=== PATIENT | female | born 1990 | race Caucasian/White ===

== ENCOUNTER 2016-03-03 18:47 | Emergency (ER) | payer SELFPAY ==
[~2016-03-03] VITALS: Ht 167.6 cm; Wt 77.4 kg
[~2016-03-03 18:47] MED LIST: CLEOCIN300 MG PO; FLEXERIL10 MG PO; MOTRIN600 MG PO; PROVENTIL,2.5 MG/3 M IH; ULTRAM50 MG PO; VENTOLIN HFA18 GM IH
[2016-03-03 19:34] LABS: MCH 31.1 PG (29.0-34.0); MCHC 35.5 G/DL (30.0-36.0); MCV 87.6 FL (83-99); MEAN PLAT.VOLUME 11.4 uM^3 (9.5-12.4); PLATELET COUNT 236 K/uL (156-360); RBC DIS.WIDTH-CV 12.5 % (11.8-14.6); RBC DIS.WIDTH-SD 38.6 % (39-53); RED BLOOD COUNT 4.34 M/uL (3.80-5.20); WHITE BLOOD COUNT 7.2 K/uL (4.1-10.2)
[2016-03-03 19:56] LABS: QUANTITATIVE HCG < 4.0 MIU/ML
[2016-03-03 20:13] LABS: CHLORIDE 107 mEq/L (99-109); SODIUM 139 mEq/L (136-147)
[2016-03-03 20:15] LABS: GLUCOSE 91 mg/dL (70-99)
[2016-03-03 20:15] LABS: ADD MIUA? NO; BILIRUBIN NEGATIVE; BLOOD NEGATIVE; COLOR YELLOW ((YELLOW)); GLUCOSE (STRIP) NEGATIVE; KETONES NEGATIVE; LEUKOCYTES NEGATIVE; NITRITE NEGATIVE; PROTEIN (STRIP) NEGATIVE; UCUL ADDED? NO; UROBILINOGEN 0.2 MG/DL (0.2-1.0)
[2016-03-03 20:17] LABS: ANION GAP 8 MEQ/L (2-14); TOTAL BILIRUBIN 0.9 mg/dL (0.0-1.0)
[2016-03-03 20:19] LABS: ALKALINE PHOSPHATASE 70 IU/L (3-129); GFR ESTIMATE (CALCULATED) > 59 mL/min/
[2016-03-03 20:20] LABS: UREA NITROGEN (BUN) 10 mg/dL (9-23)
[2016-03-03] MEDS ORDERED: FLEXERIL10 MG PO (21:38)
[2016-03-03] MEDS ORDERED: ULTRAM50 MG PO (21:38)
[2016-03-03] MEDS ORDERED: PREDNISONE10 MG PO (21:38)
[2016-03-03 22:05] VITALS: BP 136/79
== END 2016-03-03 22:06 | disposition home or self-care (01) ==
LOC: EME 18:47 → EXP 18:47
DX: M54.5 Low back pain (principal); M62.838 Other muscle spasm; J45.909 Unspecified asthma, uncomplicated; F17.200 Nicotine dependence, unspecified, uncomplicated
CPT/HCPCS: 80053; 81003; 84702; 85027; 99281; 99284; J7512

== ENCOUNTER 2016-03-27 20:53 | Emergency (ER) | payer SELFPAY ==
[~2016-03-27] VITALS: Ht 167.6 cm; Wt 79.7 kg
[~2016-03-27 20:53] MED LIST changes: +PREDNISONE10 MG PO
[2016-03-27 21:30] LABS: HEMATOCRIT 39.3 % (36.0-46.0); MCH 30.9 PG (29.0-34.0); MCHC 34.6 G/DL (30.0-36.0); MCV 89.3 FL (83-99); MEAN PLAT.VOLUME 11.3 uM^3 (9.5-12.4); PLATELET COUNT 205 K/uL (156-360); RBC DIS.WIDTH-CV 12.6 % (11.8-14.6); RBC DIS.WIDTH-SD 40.1 % (39-53); WHITE BLOOD COUNT 9.1 K/uL (4.1-10.2)
[2016-03-27 21:48] LABS: CHLORIDE 106 mEq/L (99-109); POTASSIUM 4.3 mEq/L (3.7-5.4); SODIUM 139 mEq/L (136-147)
[2016-03-27 21:49] LABS: GLUCOSE 82 mg/dL (70-99)
[2016-03-27 21:51] LABS: ANION GAP 8 MEQ/L (2-14)
[2016-03-27 21:53] LABS: GFR ESTIMATE (CALCULATED) > 59 mL/min/
[2016-03-27 21:54] LABS: UREA NITROGEN (BUN) 17 mg/dL (9-23)
[2016-03-27 22:01] LABS: QUANTITATIVE HCG < 4.0 MIU/ML
[2016-03-27 22:02] LABS: TROP-I INTERPRETATION NEGATIVE; TROPONIN-I < 0.01 ng/mL (0.0-0.30)
[2016-03-27] MEDS ORDERED: ATARAX,VISTARIL25 MG PO (23:51)
[2016-03-27 23:58] VITALS: BP 125/57
== END 2016-03-27 23:59 | disposition home or self-care (01) ==
LOC: EME 20:53
DX: R07.9 Chest pain, unspecified (principal); M94.0 Chondrocostal junction syndrome [Tietze]; F17.200 Nicotine dependence, unspecified, uncomplicated; Z88.6 Allergy status to analgesic agent; Z88.0 Allergy status to penicillin
CPT/HCPCS: 71020; 80048; 84484; 84702; 85027; 93005; 99281; 99284; Q0177

== ENCOUNTER 2016-04-20 11:53 | Emergency (ER) | payer OTHER ==
[~2016-04-20] VITALS: Ht 167.6 cm; Wt 80.7 kg
[~2016-04-20 11:53] MED LIST changes: +ATARAX,VISTARIL25 MG PO
[2016-04-20 14:07] LABS: ADD MIUA? YES; BILIRUBIN NEGATIVE; BLOOD NEGATIVE; COLOR YELLOW ((YELLOW)); GLUCOSE (STRIP) NEGATIVE; KETONES NEGATIVE; LEUKOCYTES NEGATIVE; NITRITE NEGATIVE; PROTEIN (STRIP) NEGATIVE; SPECIFIC GRAVITY 1.017 (1.000-1.030); UROBILINOGEN 0.2 MG/DL (0.2-1.0)
[2016-04-20 14:15] LABS: BACTERIA NONE SEEN /HPF; BUDDING YEAST 1+; EPITHELIAL CELLS RARE /HPF; MUCUS NONE SEEN /LPF; RED BLOOD CELLS 0-5 /HPF (0-5); WHITE BLOOD CELLS 0-5 /HPF (0-5)
[2016-04-20 14:43] LABS: CHLORIDE 107 mEq/L (99-109); POTASSIUM 4.4 mEq/L (3.7-5.4); SODIUM 140 mEq/L (136-147)
[2016-04-20 14:45] LABS: GLUCOSE 96 mg/dL (70-99)
[2016-04-20 14:46] LABS: ANION GAP 9 MEQ/L (2-14)
[2016-04-20 14:49] LABS: GFR ESTIMATE (CALCULATED) > 59 mL/min/; UREA NITROGEN (BUN) 9 mg/dL (9-23)
[2016-04-20 15:02] LABS: QUANTITATIVE HCG < 4.0 MIU/ML
[2016-04-20] MEDS ORDERED: MOTRIN800 MG PO (15:17)
[2016-04-20] MEDS ORDERED: ANTIVERT25 MG PO (15:17)
[2016-04-20 15:26] VITALS: BP 136/65
== END 2016-04-20 15:27 | disposition home or self-care (01) ==
LOC: EME 11:53
PROVIDERS: Physician Assistant
DX: S06.0X9A Concussion with loss of consciousness of unspecified duration, initial encounter (principal); W19.XXXA Unspecified fall, initial encounter; W22.8XXA Striking against or struck by other objects, initial encounter; Y99.0 Civilian activity done for income or pay; R42 Dizziness and giddiness; J45.909 Unspecified asthma, uncomplicated; F17.200 Nicotine dependence, unspecified, uncomplicated
CPT/HCPCS: 80048; 81003; 84702; 99281; 99283

== ENCOUNTER 2016-04-26 22:01 | Emergency (ER) | payer OTHER ==
[~2016-04-26] VITALS: Ht 167.6 cm; Wt 91.3 kg
[~2016-04-26 22:01] MED LIST changes: +ANTIVERT25 MG PO; +MOTRIN800 MG PO
[2016-04-26 22:45] LABS: BASOPHIL COUNT 0.1 K/uL (0-0.1); EOSINOPHIL (%) 4.1 % (0-5); EOSINOPHIL COUNT 0.4 K/uL (0-0.3); HEMATOCRIT 38.4 % (36.0-46.0); IMMATURE GRANULOCYTE (%) 0.2 % (0.0-0.7); INSTRUMENT ABS NEUTROPHIL CT 3.6 K/uL; LYMPHOCYTE COUNT 4.6 K/uL (1.0-2.8); MCH 30.3 PG (29.0-34.0); MCHC 33.6 G/DL (30.0-36.0); MCV 90.1 FL (83-99); MEAN PLAT.VOLUME 10.9 uM^3 (9.5-12.4); MONOCYTE (%) 5.8 % (3-12); MONOCYTE COUNT 0.5 K/uL (0-0.8); NEUTROPHIL COUNT 3.6 K/uL (1.8-6.4); PLATELET COUNT 205 K/uL (156-360); RBC DIS.WIDTH-CV 11.7 % (11.8-14.6); RBC DIS.WIDTH-SD 38.3 % (39-53); RED BLOOD COUNT 4.26 M/uL (3.80-5.20); WHITE BLOOD COUNT 9.2 K/uL (4.1-10.2)
[2016-04-26 22:48] LABS: ADD MIUA? YES; BILIRUBIN NEGATIVE; BLOOD NEGATIVE; COLOR YELLOW ((YELLOW)); GLUCOSE (STRIP) NEGATIVE; KETONES NEGATIVE; LEUKOCYTES TRACE; NITRITE NEGATIVE; PROTEIN (STRIP) NEGATIVE; SPECIFIC GRAVITY 1.021 (1.000-1.030); UROBILINOGEN 0.2 MG/DL (0.2-1.0)
[2016-04-26 22:52] LABS: BACTERIA RARE /HPF; EPITHELIAL CELLS RARE /HPF; MUCUS NONE SEEN /LPF; RED BLOOD CELLS 0-5 /HPF (0-5); UCUL ADDED? NO; WHITE BLOOD CELLS 0-5 /HPF (0-5)
[2016-04-26 22:55] LABS: CHLORIDE 105 mEq/L (99-109); SODIUM 139 mEq/L (136-147)
[2016-04-26 22:57] LABS: GLUCOSE 91 mg/dL (70-99)
[2016-04-26 22:58] LABS: ANION GAP 9 MEQ/L (2-14)
[2016-04-26 22:59] LABS: TOTAL BILIRUBIN 0.7 mg/dL (0.0-1.0)
[2016-04-26 23:00] LABS: ALKALINE PHOSPHATASE 65 IU/L (3-129)
[2016-04-26 23:01] LABS: GFR ESTIMATE (CALCULATED) > 59 mL/min/
[2016-04-26 23:02] LABS: UREA NITROGEN (BUN) 16 mg/dL (9-23)
[2016-04-26 23:04] LABS: LIPASE 46 U/L (1.0-51.0)
[2016-04-26 23:13] LABS: QUANTITATIVE HCG < 4.0 MIU/ML
[2016-04-27] MEDS ORDERED: ZOFRAN ODT4 MG PO (00:40)
[2016-04-27] MEDS ORDERED: TRAMADOL HCL50 MG PO (00:40)
[2016-04-27 01:00] VITALS: BP 144/64
== END 2016-04-27 01:12 | disposition home or self-care (01) ==
LOC: EME 22:01
PROVIDERS: Emergency Medicine
DX: N83.202 Unspecified ovarian cyst, left side (principal); R10.30 Lower abdominal pain, unspecified; N64.4 Mastodynia; J45.909 Unspecified asthma, uncomplicated; F17.200 Nicotine dependence, unspecified, uncomplicated
CPT/HCPCS: 74177; 80053; 81003; 83690; 84702; 85025; 99281; 99285; J1885; J2405; J7030

== ENCOUNTER 2016-06-07 12:54 | Emergency (ER) | payer OTHER ==
[~2016-06-07] VITALS: Ht 167.6 cm; Wt 78.8 kg
[~2016-06-07 12:54] MED LIST changes: +TRAMADOL HCL50 MG PO; +ZOFRAN ODT4 MG PO
[2016-06-07 13:56] LABS: ADD MIUA? NO; BILIRUBIN NEGATIVE; BLOOD NEGATIVE; COLOR YELLOW ((YELLOW)); GLUCOSE (STRIP) NEGATIVE; KETONES NEGATIVE; LEUKOCYTES NEGATIVE; NITRITE NEGATIVE; PROTEIN (STRIP) NEGATIVE; SPECIFIC GRAVITY 1.011 (1.000-1.030); UCUL ADDED? NO; UROBILINOGEN 0.2 MG/DL (0.2-1.0)
[2016-06-07 14:13] LABS: HEMATOCRIT 44.8 % (36.0-46.0); MCH 30.1 PG (29.0-34.0); MCHC 34.2 G/DL (30.0-36.0); MCV 88.2 FL (83-99); MEAN PLAT.VOLUME 11.5 uM^3 (9.5-12.4); PLATELET COUNT 250 K/uL (156-360); RBC DIS.WIDTH-CV 11.4 % (11.8-14.6); RBC DIS.WIDTH-SD 36.6 % (39-53); RED BLOOD COUNT 5.08 M/uL (3.80-5.20); WHITE BLOOD COUNT 6.9 K/uL (4.1-10.2)
[2016-06-07 14:21] LABS: CHLORIDE 104 mEq/L (99-109); POTASSIUM 4.4 mEq/L (3.7-5.4); SODIUM 137 mEq/L (136-147)
[2016-06-07 14:22] LABS: GLUCOSE 90 mg/dL (70-99)
[2016-06-07 14:24] LABS: ANION GAP 9 MEQ/L (2-14)
[2016-06-07 14:26] LABS: GFR ESTIMATE (CALCULATED) > 59 mL/min/
[2016-06-07 14:27] LABS: UREA NITROGEN (BUN) 11 mg/dL (9-23)
[2016-06-07 14:34] LABS: QUANTITATIVE HCG < 4.0 MIU/ML
[2016-06-07] MEDS ORDERED: VALIUM5 MG PO (15:10)
[2016-06-07] MEDS ORDERED: INDOCIN50 MG PO (15:10)
[2016-06-07] MEDS ORDERED: BENTYL20 MG PO (15:24)
[2016-06-07] MEDS ORDERED: ZOFRAN ODT4 MG PO (15:24)
[2016-06-07 17:57] VITALS: BP 136/66
== END 2016-06-07 17:59 | disposition home or self-care (01) ==
LOC: EME 12:54
DX: S39.012A Strain of muscle, fascia and tendon of lower back, initial encounter (principal); G89.29 Other chronic pain; M54.5 Low back pain; R10.9 Unspecified abdominal pain; R11.0 Nausea; J45.909 Unspecified asthma, uncomplicated; F41.9 Anxiety disorder, unspecified; F90.9 Attention-deficit hyperactivity disorder, unspecified type; F17.200 Nicotine dependence, unspecified, uncomplicated
CPT/HCPCS: 80048; 81003; 84702; 85027; 99281; 99284

== ENCOUNTER 2017-03-14 11:16 | Emergency (ER) | payer SELFPAY ==
[~2017-03-14] VITALS: Ht 167.6 cm; Wt 81.6 kg
[~2017-03-14 11:16] MED LIST changes: +BENTYL20 MG PO; +INDOCIN50 MG PO; +VALIUM5 MG PO
[2017-03-14 12:27] LABS: APPEARANCE CLOUDY ((CLEAR)); BILIRUBIN NEGATIVE; BLOOD NEGATIVE; COLOR YELLOW ((YELLOW)); GLUCOSE (STRIP) NEGATIVE; KETONES NEGATIVE; LEUKOCYTES NEGATIVE; NITRITE NEGATIVE; PROTEIN (STRIP) 30; SPECIFIC GRAVITY 1.025 (1.000-1.030); UROBILINOGEN 0.2 MG/DL (0.2-1.0)
[2017-03-14 12:41] LABS: BACTERIA NONE SEEN /HPF; EPITHELIAL CELLS 1+ /HPF; MUCUS TRACE /LPF; RED BLOOD CELLS 0-5 /HPF (0-5); UCUL ADDED? NO; WHITE BLOOD CELLS 0-5 /HPF (0-5)
[2017-03-14 12:43] LABS: HEMATOCRIT 41.3 % (36.0-46.0); HEMOGLOBIN 14.5 G/DL (11.9-15.5); MCH 32.1 PG (29.0-34.0); MCHC 35.1 G/DL (30.0-36.0); MCV 91.4 FL (83-99); PLATELET COUNT 219 K/uL (156-360); RBC DIS.WIDTH-CV 12.1 % (11.8-14.6); RBC DIS.WIDTH-SD 40.9 % (39-53); RED BLOOD COUNT 4.52 M/uL (3.80-5.20); WHITE BLOOD COUNT 7.8 K/uL (4.1-10.2)
[2017-03-14 12:53] LABS: ALBUMIN 4.8 g/dL (3.2-4.8); CHLORIDE 110 mEq/L (99-109); POTASSIUM 4.2 mEq/L (3.7-5.4); SODIUM 138 mEq/L (136-147)
[2017-03-14 12:55] LABS: GLUCOSE 101 mg/dL (70-99)
[2017-03-14 12:56] LABS: TOTAL PROTEIN 7.9 g/dL (6.4-8.3)
[2017-03-14 12:57] LABS: TOTAL BILIRUBIN 1.5 mg/dL (0.0-1.0)
[2017-03-14 12:59] LABS: ALKALINE PHOSPHATASE 59 IU/L (3-129); CREATININE 0.8 mg/dL (0.6-1.3); GFR ESTIMATE (CALCULATED) > 59 mL/min/
[2017-03-14 13:00] LABS: UREA NITROGEN (BUN) 11 mg/dL (9-23)
[2017-03-14 13:01] LABS: AST (GOT) 13 IU/L (2-34)
[2017-03-14 13:02] LABS: ALT (GPT) 10 IU/L (3-49)
[2017-03-14 13:09] LABS: QUANTITATIVE HCG < 4.0 MIU/ML
[2017-03-14 13:36] LABS: D-DIMER ELISA < 150.00 ng/mLDDU (<230)
[2017-03-14] MEDS ORDERED: MIRALAX17 GM PO ×2 (17:50→17:53)
[2017-03-14 18:36] VITALS: BP 129/60
== END 2017-03-14 18:41 | disposition home or self-care (01) ==
LOC: EME 11:16
PROVIDERS: Emergency Medicine
DX: R10.11 Right upper quadrant pain (principal); R42 Dizziness and giddiness; F17.200 Nicotine dependence, unspecified, uncomplicated; J45.909 Unspecified asthma, uncomplicated; Z88.0 Allergy status to penicillin; Z88.6 Allergy status to analgesic agent
CPT/HCPCS: 71275; 74177; 76705; 80053; 81003; 84702; 85027; 85379; 99281; 99285; J1885; J2405; J7030